=== PATIENT | female | born 1965 | race Hispanic/Latino ===

== ENCOUNTER → 2023-04-18 | Day surgery (SDC) | payer BC, OTHER ==
[~2023-04-18] MED LIST: 5-HTP100 MG PO; ASPIRIN81 MG PO; CEFTIN500 MG PO; COLACE100 MG PO; DIFLUCAN200 MG PO; FENTANYL CITRATE/PF 100MCG/2 ML INJ ONE; LACTATED RINGER'S 1,000 ML ONE; LISINOPRIL2.5 MG PO; MAXALT10 MG PO; MIDAZOLAM HCL 2 MG/2 ML VIAL ONE; NAPROXEN250 MG PO; NORCO 10-325 T1 EACH PO; OR PHACO EYE KIT ONE; PHENERGAN25 MG/1 M1; PREOP PHACO EYE KIT ONE; PROMETHAZINE HC25 M1 PO; SUMATRIPTAN SUC25 MG PO; ULTRAM 50MG50 MG PO; URIBEL CAPSULE1 EACH PO; ZOFRAN ODT4 MG SL
[2023-04-18 08:53] VITALS: TEMP 97.3
[2023-04-18 09:05] VITALS: BP 107/96; PULSE 70; RESP 16; O2SAT 98
== END | disposition home or self-care (01) ==
LOC: OR 06:24
PROVIDERS: ATTEND Ophthalmology
DX: H25.11 Age-related nuclear cataract, right eye (principal); I10 Essential (primary) hypertension; I83.90 Asymptomatic varicose veins of unspecified lower extremity; I20.9 Angina pectoris, unspecified; G43.909 Migraine, unspecified, not intractable, without status migrainosus; N28.9 Disorder of kidney and ureter, unspecified; Z88.6 Allergy status to analgesic agent; Z79.82 Long term (current) use of aspirin; Z79.899 Other long term (current) drug therapy; Z87.442 Personal history of urinary calculi
CPT/HCPCS: 66984; J2250; J3010; J7121; V2632